=== PATIENT | male | born 1960 | race Caucasian/White ===

== ENCOUNTER → 2019-08-19 12:01 | Outpatient (CLI) | payer OTHER, SELFPAY ==
[2019-08-19 10:57] VITALS: BMI 21.9
--- NOTE | 2019-08-19 12:07 | RAD_ITS ---
STUDY: X-RAY - LEFT SHOULDER REASON FOR EXAM: Male, 59 years old. TECHNIQUE: view(s) of the shoulder. COMPARISON: None. FINDINGS: Normal glenohumeral articulation. Normal acromioclavicular joint. Normal acromion. Normal humeral head and visualized proximal humerus. The soft tissue structures are unremarkable. No soft tissue calcification. Normal visualized pulmonary apex. RAD/Shoulder min 2 Views IMPRESSION: Normal x-ray examination of the shoulder. Electronically Signed: Itz Lugo, at 16:05 EST Tel , Service support ,
--- NOTE | 2019-08-19 12:07 | RAD_ITS ---
STUDY: X-RAY - CERVICAL SPINE REASON FOR EXAM: Male, 59 years old. TECHNIQUE: 4 view(s) of the cervical spine were obtained. COMPARISON: None FINDINGS: Normal anterior atlantoaxial articulation. Normal odontoid process. Straightened cervical lordosis. Normal vertebral bodies and endplates. There is narrowing of the intervertebral discs with anterior osteophyte formation at the level of C4-5, C5-6 and C6-7. The facet joints and spinous processes are intact. The prevertebral soft tissue and air column are unremarkable.. RAD/Cerv Spine 2 or 3 Views IMPRESSION: Narrowing of the intervertebral discs at the levels described above with anterior osteophyte formation. Electronically Signed: Itz Lugo, at 15:44 EST Tel , Service support ,
--- NOTE | 2019-08-19 12:07 | RAD_ITS ---
STUDY: X-RAY - RIGHT FOOT CLINICAL: Male, 59 years old. TECHNIQUE: 3 view(s) of the foot. COMPARISON: None. FINDINGS: Normal talus, calcaneus, and tarsal bones. Normal visualized subtalar, talonavicular, calcaneocuboid, tarsal and tarsometatarsal articulations. Normal metatarsi. Normal metatarsophalangeal joint of the great toe. Normal tibial and fibular sesamoid bones. Normal interphalangeal joint of the great toe. Normal phalanges of the great toe. Normal second through fifth metatarsophalangeal joints. Normal interphalangeal joints and phalanges of the lesser toes. The soft tissue structures are unremarkable. RAD/Foot min 3 Views IMPRESSION: Normal x-ray examination of the foot. Electronically Signed: Itz Lugo, at 16:05 EST Tel , Service support ,
== END ==
LOC: MTRAD 12:05
PROVIDERS: Family Provider Internal Medicine; PCP Internal Medicine; Referring Provider Internal Medicine; Visit Provider Internal Medicine
DX: M54.2 Cervicalgia (principal); M75.82 Other shoulder lesions, left shoulder; M79.671 Pain in right foot
CPT/HCPCS: 72040; 73030; 73630

== ENCOUNTER → 2019-08-28 13:51 | Outpatient (CLI) | payer OTHER, SELFPAY ==
[2019-08-19 10:57] VITALS: BMI 21.9
--- NOTE | 2019-08-28 18:10 | NEURO_ITS ---
NCS and/or EMG Patient Report HPI: Patient is a 59-year-old male who presented with the pain and numbness in both hands and has a history of neck injury as well as some leg neck pain and neck stiffness and some pain in the shoulders with limited range of motion. Physical Exam: decreased sensation to light touch noted in both hand fingers. Slight weakness of both hand muscles noted. Spasm and tenderness with slightly decreased range of motion of cervical spine noted. Findings: 1. There is prolongation of distal latency of left median sensory nerve respo nse. 2. Normal rest of the nerve conduction studies in bilateral upper extremities. 3. Normal needle examination of bilateral upper extremities including cervical paraspinal muscles. Impression: 1. Findings are consistent with a mild left median mononeuropathy due to carpal tunnel syndrome. 2. No electrodiagnostic evidence of ulnar neuropathy, cervical radiculopathy or brachial plexopathy in bilateral upper extremities. Recommendation: 1. Patient recommended to wear left hand splint as much as possible. 2. Patient recommended to avoid repetitive left hand movements and sleeping or leaning on left elbow.
== END ==
LOC: PSN 13:52
PROVIDERS: Family Provider Internal Medicine; PCP Internal Medicine; Referring Provider Internal Medicine; Visit Provider Internal Medicine
DX: G56.03 Carpal tunnel syndrome, bilateral upper limbs (principal)
CPT/HCPCS: 95886; 95912

== ENCOUNTER 2024-09-29 17:46 | Emergency (ER) | payer OTHER, SELFPAY ==
[2024-09-29 17:48] VITALS: BP 148/83; PULSE 72; RESP 18; TEMP 36.5; O2SAT 98; BMI 21.5
[2024-09-29 17:53] VITALS: BP 148/83; PULSE 72; RESP 18; TEMP 36.5; O2SAT 98
[2024-09-29 18:53] VITALS: BP 150/93; PULSE 67; RESP 16; TEMP 36.5; O2SAT 97
[2024-09-29 19:00] VITALS: BP 150/93; PULSE 67; RESP 16; TEMP 36.5; O2SAT 97
[2024-09-29 20:00] VITALS: BP 157/98; PULSE 62; RESP 17; TEMP 36.6; O2SAT 98
[2024-09-29] MEDS: Ketorolac 15 MG/ML Vial IV (20:18)
[2024-09-29 20:32] LABS: Absolute Neutrophil Count 10.7 X10^3/uL (2.0-7.7); Basophil# 0.09 X10^3/uL; Basophil% 0.6 % (0-1); Eosinophil# 0.17 X10^3/uL; Eosinophils% 1.1 % (0-5); Hematocrit 43.2 % (40-54); Mean Corp Hgb Conc 34.7 g/dL (32-36); Mean Corpuscular Hgb 31.3 pg (27.0-32.0); Mean Corpuscular Volume 90.2 fL (80-94); Mean Platelet Vol. 9.7 fl (6.2-12.0); Monocyte# 1.22 X10^3/uL; Monocyte% 8.1 % (0-10); NRBC Flagged by Analyzer 0 % (0-5); Neutrophil # 10.69 X10^3/uL (2.7-7.7); Neutrophil % 71.5 % (47-70); Platelet Count 334 K/mm3 (150-450); RBC Distribution Width CV 12.3 % (11.6-14.6); RBC Distribution Width SD 40.6 fl (35.1-43.9); Red Blood Count 4.79 M/mm3 (4.6-6.2)
[2024-09-29 20:47] LABS: Anion Gap 5 (5-15); BUN 11 mg/dL (7-18); BUN/Creat Ratio 14.1 RATIO (10-20); Calcium,Total 9.1 mg/dL (8.5-10.1); Chloride 102 mmol/L (98-107); Creatinine, Serum 0.78 mg/dL (0.70-1.30); EST Glomerular Filtration Rate 107 mL/min (>60); Est Glom Filt Rate - Afr Amer 130 mL/min (>60); Estimated Creatinine Clearance 91.92 ml/min; Glucose 101 mg/dL (74-106); Potassium 3.7 mmol/L (3.5-5.1); Sodium Level 137 mmol/L (136-145)
[2024-09-29 21:00] VITALS: BP 158/89
--- NOTE | 2024-09-29 21:09 | EX.ED.DYSGE1 ---
HPI History of Present Illness Chief Complaint: General Illness Detail of Chief Complaint: Painful lump first noted 2 days ago near the angle of the mandible on the r Informant: patient and spouse/S.O. Onset/Context/Timing Onset: Days (2 days prior to arrival) Context: Sudden Onset Timing: Continuous Quality: Pain Location: Near the angle of the mandible on the right side Current Severity: Mild Maximum Severity: Severe Worsened by: Palpation Relieved by: Nothing Associated Symptoms Associated Symptoms: Chills today Narrative Narrative: Patient is 64-year-old male. He is a smoker. He presents because of pain near the angle of his mandible. There is swelling and redness. He denies odor to his breath. He denied fever but did have chills. He denies change in voice. He denies weight gain or weight loss. He denies night sweats. He denies difficulty swallowing liquids or solids. Prior similar symptoms: No Recent Illness/Hospitalization: No PFSH PFS Medical History (Updated 09/29/24 @ 21:[address] Jason Gant MD) Injury of upper arm, left Carpal tunnel syndrome on both sides Bone fracture Arthritis Home Medications ?Medication ?Instructions ?Recorded ?Last Taken ?Type clindamycin HCl 300 mg capsule 300 mg PO Q6H #28 CAPSULES 09/29/24 Unknown Rx (Cleocin HCl) Allergy/AdvReac Type Severity Reaction Status Date / Time Penicillins (PCN) Allergy Angioedema Verified 09/29/24 17:48 Family History Other Arthritis Asthma Cancer Colon cancer Myocardial infarction Surgical History History of knee surgery Social History Smoking Status: Heavy Smoker (>10/day) alcohol intake: never substance use type: does not use and marijuana what type of physical activity do you participate in: none ROS ROS ED Constitutional Constitutional ED: Reports chills; Denies fever(s), subjective, sweats or weight loss Eyes Eyes: Denies blurry vision, change in vision or diplopia ENT ENT ED: Denies ear pain, rhinorrhea or sore throat Cardiovascular Cardiovascular: Denies chest pain, palpitations or racing heartbeat Respiratory/Chest Respiratory/Chest: Denies cough, dyspnea or dyspnea on exertion Gastrointestinal Gastrointestinal: Denies nausea or vomiting Musculoskeletal Musculoskeletal: Reports neck pain and other Details: Anterior right neck pain. ; Denies arthralgias or myalgias Integumentary Reports rash Hematologic/Lymphatic Hematologic/Lymphatic: Reports systems reviewed and no addt'l complaints, except as documented EXAM Physical Exam Const Vital Signs: 09/29/24 17:48 09/29/24 17:53 09/29/24 18:53 Temperature 97.7 F L 97.7 F L 97.7 F L Temperature Source Oral Oral Oral Pulse Rate 72 72 67 Respiratory Rate 18 18 16 Respiratory Effort Respiratory Pattern Blood Pressure 148/83 H 148/83 H 150/93 H Blood Pressure Mean 104 104 112 Pulse Ox 98 98 97 Oxygen Delivery Method Room Air Room Air Room Air 09/29/24 19:00 09/29/24 19:45 09/29/24 20:00 Temperature 97.7 F L 98 F Temperature Source Oral Temporal Pulse Rate 67 62 Respiratory Rate 16 17 Respiratory Effort Normal Respiratory Pattern Normal Blood Pressure 150/93 H 157/98 H Blood Pressure Mean 112 117 Pulse Ox 97 98 Oxygen Delivery Method Room Air Room Air 09/29/24 21:00 Temperature Temperature Source Pulse Rate Respiratory Rate Respiratory Effort Respiratory Pattern Blood Pressure 158/89 H Blood Pressure Mean 112 Pulse Ox Oxygen Delivery Method Positive well nourished and well developed General Appearance ED: well developed and NAD; Negative for pallor HEENT Reports moist mucous membranes HEENT Narrative: Palpation over the parotid does not elicit any discharge from Stensen's duct. There is no anterior cervical lymphadenopathy noted. There is no trismus. There is no dental pathology. Posterior pharynx is normal. Eyes PERRL and EOMs intact bilaterally General Eye ED: Negative for pale conjunctiva or scleral icterus Neck no lymphadenopathy, supple and no JVD Resp normal respiratory effort and clear to auscultation bilaterally Cardio regular rate, regular rhythm, S1 normal heart sound, S2 normal heart sound and no murmurs Extremity normal to inspection Extremity Narrative: There is no clubbing or cyanosis. General Extremety ED: Negative for edema or tenderness General Extremity: Negative for edema Neuro oriented x3, CN's II-XII intact bilaterally and no sensory deficits noted Sensorium / Orientation: alert Psych mental status grossly normal Skin no wounds and skin turgor normal General Skin Exam: elasticity normal; Negative for jaundice or pallor MDM MDM MDM Narrative Medical decision making narrative: Differential diagnosis is sialolithiasis, proctitis, doubt brachial cleft cyst. Doubt cervical lymphadenopathy. Because patient reported chills were obtained white count. Patient was treated with IV ketorolac for his pain. He did not want opiate analgesics. CBC was obtained assess white count differential. BMP to assess renal function and to determine if antibiotic dose would need adjusted. Lab Data Attestation: I reviewed the patient's lab results. Lab results narrative: White count is elevated. There is a slight shift. Electrolyte panel is unremarkable. Because of allergies to penicillin he was treated with clindamycin and referred to Dr. Hager who is on for ENT. Labs: Laboratory Results - last 24 hr 09/29/24 20:20 WBC 15.0 H RBC 4.79 Hgb 15.0 Hct 43.2 MCV 90.2 MCH 31.3 MCHC 34.7 RDW Std Deviation 40.6 RDW Coeff of Luz Elena 12.3 Plt Count 334 MPV 9.7 Immature Gran % (Auto) 0.700 Neut % (Auto) 71.5 H Lymph % (Auto) 18.0 L Williamson % (Auto) 8.1 Eos % (Auto) 1.1 Baso % (Auto) 0.6 Absolute Neuts (auto) 10.7 H Absolute Lymphs (auto) 2.70 Nucleated RBC % 0 Sodium 137 Potassium 3.7 Chloride 102 Carbon Dioxide 30.0 Anion Gap 5 BUN 11 Creatinine 0.78 Estim Creat Clear Calc 91.92 Est GFR (MDRD) Af Amer 130 Est GFR (MDRD) Non-Af 107 BUN/Creatinine Ratio 14.1 Glucose 101 Calcium 9.1 Discharge Plan Triage Chief Complaint: General Illness ED Provider: Jason Gant Dx/Rx/DC Orders Clinical Impression: Acute parotitis, Hypertension Instructions: ED Salivary Gland Infection Prescriptions: New clindamycin HCl [Cleocin HCl] 300 mg capsule 300 mg PO Q6H Qty: 28 0RF Primary Care Provider: Care Physician,No Primary Referrals: Jose Hager MD [Med Staff - Active Staff] - 3-5 Days Care Physician,No Primary [Primary Care Provider] - Print Language: Bhutanese Disposition Disposition: Home, Self Care
[2024-09-29] MEDS: Clindamycin HCl 150 MG Capsule 300 MG PO (21:49)
== END 2024-09-29 21:53 | disposition home or self-care (01) ==
PROVIDERS: Emergency Provider Emergency Medicine; Visit Provider Emergency Medicine
DX: K11.21 Acute sialoadenitis (principal); I10 Essential (primary) hypertension; Z88.0 Allergy status to penicillin; F17.200 Nicotine dependence, unspecified, uncomplicated
CPT/HCPCS: 80048; 85025; 96374; 99284; A4216